=== PATIENT | female | born 1940 | race Caucasian/White ===

== ENCOUNTER → 2017-02-17 | Outpatient (CLI) | payer OTHER | END | disposition home or self-care (01) | LOC: CFH 09:51 | PROVIDERS: ATTEND Family Medicine | DX: Z12.31 Encounter for screening mammogram for malignant neoplasm of breast (principal); M85.80 Other specified disorders of bone density and structure, unspecified site; N95.9 Unspecified menopausal and perimenopausal disorder | CPT/HCPCS: G0202 ==

== ENCOUNTER → 2017-02-25 | Outpatient (CLI) | payer OTHER | END | disposition home or self-care (01) | LOC: CFH 11:16 | PROVIDERS: ATTEND Family Medicine | DX: Z13.820 Encounter for screening for osteoporosis (principal); M85.88 Other specified disorders of bone density and structure, other site | CPT/HCPCS: 77080 ==

== ENCOUNTER → 2017-04-14 | Outpatient (CLI) | payer OTHER | END | disposition home or self-care (01) | LOC: CFH 11:14 | PROVIDERS: ATTEND Family Medicine | DX: M48.56XA Collapsed vertebra, not elsewhere classified, lumbar region, initial encounter for fracture (principal) | CPT/HCPCS: 72100 ==

== ENCOUNTER 2017-07-12 10:07 | Inpatient (IN) | payer OTHER ==
[~2017-07-12] VITALS: Ht 152.4 cm; Wt 82.2 kg
[2017-07-12] MEDS ORDERED: TIZA4CAP PO (10:47)
[2017-07-12] MEDS ORDERED: ASPI-496 PO (10:47)
[2017-07-12] MEDS ORDERED: METF500T4 PO (10:47)
[2017-07-12] MEDS ORDERED: LISI5TAB7 PO (10:47)
[2017-07-12] MEDS ORDERED: PIOG45TA20 PO (10:47)
[2017-07-12] MEDS ORDERED: OMEP20TA62 PO (10:47)
[2017-07-12] MEDS ORDERED: SIMV20TA3 PO (10:47)
[2017-07-12] MEDS ORDERED: SODIUM CHLORIDE FLUSH 10ML SYR IVF ONE (11:00)
[2017-07-12 11:17] LABS: MEAN CORPUSCULAR HEMOGLOBIN 29.2 pg (27.0-34.8); MEAN CORPUSCULAR HGB CONC 34.2 g/dL (32.4-35.8); MEAN CORPUSCULAR VOLUME 85.3 fL (80-100); MEAN PLATELET VOLUME 8.8 fL (7.4-10.4); PLATELET COUNT 318 x10^3/uL (130-400); RED BLOOD COUNT 4.36 x10^6/uL (3.82-5.3)
[2017-07-12 11:26] LABS: INTERNATIONAL NORMALIZED RATIO 1.13 (0.93-1.1); PROTHROMBIN TIME 11.6 Seconds (9.6-11.5)
[2017-07-12 11:30] LABS: ACETONE, SERUM Negative (Negative)
[2017-07-12 11:47] LABS: ALANINE AMINOTRANSFERASE 210 U/L (12-78); ALBUMIN 3.1 g/dL (3.4-5.0); ANION GAP 9 mmol/L (5-15); CALCIUM 8.2 mg/dL (8.5-10.1); CHLORIDE 103 mmol/L (98-107); CREATININE 0.73 mg/dL (0.55-1.02)
[2017-07-12 11:52] LABS: ALKALINE PHOSPHATASE 473 U/L (45-117); BILIRUBIN,TOTAL 13.6 mg/dL (0.2-1.0); TOTAL PROTEIN 7.1 g/dL (6.4-8.2)
[2017-07-12 12:03] LABS: MD YES
[2017-07-12 12:05] LABS: EOS#(MANUAL) 0.15 x10^3/uL (0.0-0.4); EOS% (MANUAL) 2 % (1-7); LYMPH#(MANUAL) 1.68 x10^3/uL (1-3.4); LYMPHS% (MANUAL) 23 % (22-44); MONOS#(MANUAL) 0.51 x10^3/uL (0.3-2.7); MONOS% (MANUAL) 7 % (2-9); SEG#(MANUAL) 4.96 x10^3/uL (1.8-6.8); SEGS% (MANUAL) 68 % (42-75)
[2017-07-12 12:06] LABS: <PLATELET ESTIMATE> ADEQUATE; <PLT MORPHOLOGY> NORMAL PLT MORPH; ANISOCYTOSIS 1+; MICROCYTOSIS 1+; STOMATOCYTES 1+; TARGET CELLS 1+
[2017-07-12] MEDS ORDERED: NS + 40MEQ KCL 1,000 ML IV SCH (14:30)
[2017-07-12 14:48] LABS: CULTURE INDICATED? YES; MICROSCOPIC INDICATED
[2017-07-12] MEDS ORDERED: POTASSIUM CHLORIDE 20 MEQ in SODIUM CHLORIDE 0.9% 1,000 ML IV ONE (14:50)
[2017-07-12] MEDS ORDERED: SODIUM CHLORIDE FLUSH 10ML SYR IVF PRN (15:00)
[2017-07-12] MEDS ORDERED: CEFOTETAN PMX 1GM/50ML 50 ML IV ONE (15:00)
[2017-07-12] MEDS ORDERED: CEFOTETAN PMX 1GM/50ML 50 ML ONE (15:27)
[2017-07-12] MEDS ORDERED: LABETALOL 5MG/ML, 20ML IVPush PRN (15:30)
[2017-07-12] MEDS ORDERED: LORazepam 2 MG/ML, 1ML IVPush PRN (15:30)
[2017-07-12] MEDS ORDERED: ONDANSETRON 2MG/ML, 2ML IVPush PRN (15:30)
[2017-07-12] MEDS ORDERED: HYDROmorphone 2 MG/ML, 1ML IVPush PRN (15:30)
[2017-07-12] MEDS: D5%-0.45NACL+KCL 20MEQ 1,000 ML IV SCH (16:43)
[2017-07-12 17:46] VITALS: BP 152/89
[2017-07-12 20:09] VITALS: BP 151/91
[2017-07-12] MEDS: INSULIN ASPART 100 UNITS/ML, PEN SQ-INSULIN SCH ×2 (21:30→21:40)
[2017-07-12] MEDS: FAMOTIDINE 20 MG/2 ML IVPush SCH (21:36)
[2017-07-12] MEDS ORDERED: OMNIPAQUE 350 MG/ML, 100ML BOTTLE ONE (23:51)
[2017-07-13 02:51] VITALS: BP 153/87
[2017-07-13] MEDS: INSULIN ASPART 100 UNITS/ML, PEN SQ-INSULIN SCH ×4 (03:30→21:30)
[2017-07-13] MEDS: D5%-0.45NACL+KCL 20MEQ 1,000 ML IV SCH ×2 (04:32→23:55)
[2017-07-13 05:51] LABS: MEAN CORPUSCULAR HEMOGLOBIN 29.3 pg (27.0-34.8); MEAN CORPUSCULAR HGB CONC 34.8 g/dL (32.4-35.8); MEAN CORPUSCULAR VOLUME 84.3 fL (80-100); MEAN PLATELET VOLUME 9.5 fL (7.4-10.4); PLATELET COUNT 272 x10^3/uL (130-400); RED BLOOD COUNT 4.02 x10^6/uL (3.82-5.3); RED CELL DISTRIBUTION WIDTH 18.6 % (9.6-15.2)
[2017-07-13 05:53] VITALS: BP 145/84
[2017-07-13 06:02] LABS: CHLORIDE 102 mmol/L (98-107)
[2017-07-13 06:10] LABS: MD YES
[2017-07-13 06:13] LABS: ALANINE AMINOTRANSFERASE 181 U/L (12-78); ALBUMIN 2.8 g/dL (3.4-5.0); ALKALINE PHOSPHATASE 448 U/L (45-117); ANION GAP 8 mmol/L (5-15); BASOS#(MANUAL) 0.07 x10^3/uL (0-0.1); BASOS% (MANUAL) 1 % (0-1); BILIRUBIN,TOTAL 13.2 mg/dL (0.2-1.0); CALCIUM 7.8 mg/dL (8.5-10.1); CREATININE 0.54 mg/dL (0.55-1.02); EOS#(MANUAL) 0.14 x10^3/uL (0.0-0.4); EOS% (MANUAL) 2 % (1-7); LYMPH#(MANUAL) 2.38 x10^3/uL (1-3.4); LYMPHS% (MANUAL) 35 % (22-44); MONOS#(MANUAL) 0.27 x10^3/uL (0.3-2.7); MONOS% (MANUAL) 4 % (2-9); SEG#(MANUAL) 3.94 x10^3/uL (1.8-6.8); SEGS% (MANUAL) 58 % (42-75); TOTAL PROTEIN 6.4 g/dL (6.4-8.2)
[2017-07-13 06:15] LABS: <PLATELET ESTIMATE> ADEQUATE; <PLT MORPHOLOGY> NORMAL PLT MORPH; ANISOCYTOSIS 1+; MICROCYTOSIS 1+; STOMATOCYTES 1+
[2017-07-13 06:16] LABS: TARGET CELLS 1+
[2017-07-13 07:34] VITALS: BP 149/87
[2017-07-13] MEDS ORDERED: POTASSIUM CHLORIDE 20 MEQ TAB.ER.PRT PO ONE (08:30)
[2017-07-13] MEDS: FAMOTIDINE 20 MG/2 ML IVPush SCH ×2 (09:17→21:41)
[2017-07-13] MEDS ORDERED: POTASSIUM CHLORIDE 30 MEQ in SODIUM CHLORIDE 0.9% 500 ML IV ONE (09:30)
[2017-07-13 13:33] VITALS: BP 140/82
[2017-07-13] MEDS: POTASSIUM CHLORIDE 20 MEQ TAB.ER.PRT PO SCH (17:25)
[2017-07-13 18:23] LABS: ANION GAP 6 mmol/L (5-15); CHLORIDE 103 mmol/L (98-107); CREATININE 0.66 mg/dL (0.55-1.02)
[2017-07-13 21:43] VITALS: BP 135/84
[2017-07-14] MEDS: INSULIN ASPART 100 UNITS/ML, PEN SQ-INSULIN SCH ×3 (03:30→20:42)
[2017-07-14 03:31] VITALS: BP 159/91
[2017-07-14 04:14] LABS: MEAN CORPUSCULAR HEMOGLOBIN 29.1 pg (27.0-34.8); MEAN CORPUSCULAR HGB CONC 34.3 g/dL (32.4-35.8); MEAN CORPUSCULAR VOLUME 84.7 fL (80-100); MEAN PLATELET VOLUME 9.6 fL (7.4-10.4); PLATELET COUNT 249 x10^3/uL (130-400); RED BLOOD COUNT 3.99 x10^6/uL (3.82-5.3)
[2017-07-14 04:24] LABS: ALANINE AMINOTRANSFERASE 167 U/L (12-78); ALBUMIN 2.5 g/dL (3.4-5.0); ANION GAP 7 mmol/L (5-15); CALCIUM 7.6 mg/dL (8.5-10.1); CHLORIDE 104 mmol/L (98-107); CREATININE 0.58 mg/dL (0.55-1.02)
[2017-07-14 04:27] LABS: ALKALINE PHOSPHATASE 445 U/L (45-117); BILIRUBIN,TOTAL 13.3 mg/dL (0.2-1.0); TOTAL PROTEIN 6.1 g/dL (6.4-8.2)
[2017-07-14 04:45] LABS: MD YES
[2017-07-14 04:47] LABS: ANISOCYTOSIS 1+; BASOS#(MANUAL) 0.06 x10^3/uL (0-0.1); BASOS% (MANUAL) 1 % (0-1); EOS#(MANUAL) 0.13 x10^3/uL (0.0-0.4); EOS% (MANUAL) 2 % (1-7); LYMPH#(MANUAL) 1.51 x10^3/uL (1-3.4); LYMPHS% (MANUAL) 24 % (22-44); MONOS% (MANUAL) 8 % (2-9); SEGS% (MANUAL) 65 % (42-75); TARGET CELLS 1+
[2017-07-14 04:48] LABS: <PLATELET ESTIMATE> ADEQUATE; <PLT MORPHOLOGY> NORMAL PLT MORPH; STOMATOCYTES 1+
[2017-07-14] MEDS ORDERED: MIDAZOLAM 1 MG/ML, 2ML ONE (07:06)
[2017-07-14] MEDS ORDERED: FENTANYL PF 100 MCG/2ML ONE (07:06)
[2017-07-14] MEDS: D5%-0.45NACL+KCL 20MEQ 1,000 ML IV SCH (07:12)
[2017-07-14] MEDS ORDERED: PIPERACILLIN/TAZO/PMX 3.375GM 50 ML ONE (07:18)
[2017-07-14] MEDS ORDERED: SUCCINYLCHOLINE 20 MG/ML, 10ML ONE (07:29)
[2017-07-14] MEDS ORDERED: ONDANSETRON 2MG/ML, 2ML ONE (07:29)
[2017-07-14] MEDS ORDERED: PROPOFOL 10 MG/ML, 20ML ONE (07:29)
[2017-07-14] MEDS ORDERED: ROCURONIUM 10 MG/ML,10ML ONE (07:29)
[2017-07-14] MEDS ORDERED: DEXAMETHASONE 4 MG/ML, 1ML ONE (07:29)
[2017-07-14] MEDS: POTASSIUM CHLORIDE 20 MEQ TAB.ER.PRT PO SCH ×2 (08:00→18:04)
[2017-07-14] MEDS ORDERED: ALBUTEROL SULFATE 2.5 MG/3 ML NPPB PRN (08:30)
[2017-07-14] MEDS ORDERED: HYDROcodone/APAP 7.5-325MG/15ML UDC PO PRN (08:30)
[2017-07-14] MEDS ORDERED: FENTANYL PF 100 MCG/2ML IV PRN (08:30)
[2017-07-14] MEDS ORDERED: DIAZEPAM 5 MG/ML, 2ML IVPush PRN (08:30)
[2017-07-14] MEDS ORDERED: MEPERIDINE/PF 25MG/0.5ML IVPush PRN (08:30)
[2017-07-14] MEDS ORDERED: ACETAMINOPHEN 325 MG TABLET PO PRN (08:30)
[2017-07-14] MEDS ORDERED: EPHEDRINE 50 MG/ML, 1ML IVPush PRN (08:30)
[2017-07-14] MEDS ORDERED: METOPROLOL 1 MG/ML, 5ML IV PRN (08:30)
[2017-07-14] MEDS ORDERED: OXYcodone 5 MG/5 ML ORAL.SOL UDC PO PRN (08:30)
[2017-07-14] MEDS ORDERED: MIDAZOLAM 1 MG/ML, 2ML IV PRN (08:30)
[2017-07-14] MEDS ORDERED: ONDANSETRON 2MG/ML, 2ML IVPush PRN (08:30)
[2017-07-14] MEDS ORDERED: PROMETHAZINE 25 MG/ML, 1ML IV PRN (08:30)
[2017-07-14] MEDS ORDERED: LABETALOL 5MG/ML, 20ML IV PRN (08:30)
[2017-07-14] MEDS ORDERED: HYDROmorphone 1 MG/ML, 1ML IV PRN (08:30)
[2017-07-14] MEDS ORDERED: hydrALAzine 20 MG/ML, 1ML IV PRN (08:30)
[2017-07-14] MEDS ORDERED: OMNIPAQUE 350 MG/ML, 50 ML BOTTLE ONE (08:40)
[2017-07-14] MEDS: FAMOTIDINE 20 MG/2 ML IVPush SCH ×2 (09:00→22:37)
[2017-07-14 09:27] VITALS: BP 153/88
[2017-07-14] MEDS ORDERED: OXYcodone IR 5MG TABLET PO PRN (10:00)
[2017-07-14] MEDS: ENOXAPARIN 40 MG/0.4 ML SQ SCH (10:00)
[2017-07-14] MEDS: LISINOPRIL 5 MG TABLET PO SCH (10:30)
[2017-07-14] MEDS ORDERED: INSULIN ASPART 100 UNITS/ML, PEN SQ-INSULIN SCH (11:00)
[2017-07-14 14:00] VITALS: BP 153/90
[2017-07-14 18:53] VITALS: BP 154/85
[2017-07-15 01:36] VITALS: BP 133/72
[2017-07-15 05:18] LABS: CHLORIDE 104 mmol/L (98-107)
[2017-07-15 05:25] LABS: ALANINE AMINOTRANSFERASE 152 U/L (12-78); ALBUMIN 2.5 g/dL (3.4-5.0); ALKALINE PHOSPHATASE 411 U/L (45-117); ANION GAP 9 mmol/L (5-15); CALCIUM 7.4 mg/dL (8.5-10.1); CREATININE 0.51 mg/dL (0.55-1.02); TOTAL PROTEIN 6.2 g/dL (6.4-8.2)
[2017-07-15] MEDS: INSULIN ASPART 100 UNITS/ML, PEN SQ-INSULIN SCH ×4 (07:00→21:00)
[2017-07-15] MEDS ORDERED: OXYC5TAB3 PO (07:15)
[2017-07-15 07:42] VITALS: BP 146/81
[2017-07-15] MEDS: ENOXAPARIN 40 MG/0.4 ML SQ SCH (10:06)
[2017-07-15] MEDS: LISINOPRIL 5 MG TABLET PO SCH (10:06)
[2017-07-15] MEDS: FAMOTIDINE 20 MG/2 ML IVPush SCH (10:06)
[2017-07-15] MEDS: POTASSIUM CHLORIDE 20 MEQ TAB.ER.PRT PO SCH ×2 (10:06→17:29)
[2017-07-15 12:33] VITALS: BP 132/75
[2017-07-15] MEDS ORDERED: NALOXONE 1 MG/ML, 2ML ONE (13:31)
[2017-07-15] MEDS ORDERED: MIDAZOLAM 1 MG/ML, 5ML ONE (13:31)
[2017-07-15] MEDS ORDERED: FLUMAZENIL 0.1 MG/1 ML, 5ML ONE (13:31)
[2017-07-15] MEDS ORDERED: FENTANYL PF 100 MCG/2ML ONE (13:31)
[2017-07-15] MEDS: metFORMIN 500 MG TABLET PO SCH (17:29)
[2017-07-15 18:12] VITALS: BP 125/77
[2017-07-16 02:16] VITALS: BP 125/79
[2017-07-16 05:26] LABS: ALBUMIN 2.5 g/dL (3.4-5.0); ANION GAP 5 mmol/L (5-15); CALCIUM 7.6 mg/dL (8.5-10.1); CHLORIDE 105 mmol/L (98-107)
[2017-07-16 05:27] LABS: MEAN CORPUSCULAR HGB CONC 33.7 g/dL (32.4-35.8); MEAN CORPUSCULAR VOLUME 86.1 fL (80-100); MEAN PLATELET VOLUME 9.1 fL (7.4-10.4); PLATELET COUNT 339 x10^3/uL (130-400); RED BLOOD COUNT 4.02 x10^6/uL (3.82-5.3); RED CELL DISTRIBUTION WIDTH 19.8 % (9.6-15.2)
[2017-07-16 05:29] LABS: ALANINE AMINOTRANSFERASE 121 U/L (12-78); ALKALINE PHOSPHATASE 384 U/L (45-117); BILIRUBIN,TOTAL 7.5 mg/dL (0.2-1.0); CREATININE 0.51 mg/dL (0.55-1.02); TOTAL PROTEIN 6.4 g/dL (6.4-8.2)
[2017-07-16 06:24] LABS: MD YES
[2017-07-16 06:26] LABS: ANISOCYTOSIS 1+; BASOS#(MANUAL) 0.08 x10^3/uL (0-0.1); BASOS% (MANUAL) 1 % (0-1); EOS#(MANUAL) 0.08 x10^3/uL (0.0-0.4); EOS% (MANUAL) 1 % (1-7); LYMPHS% (MANUAL) 25 % (22-44); MONOS#(MANUAL) 0.08 x10^3/uL (0.3-2.7); MONOS% (MANUAL) 1 % (2-9); SEG#(MANUAL) 6.05 x10^3/uL (1.8-6.8); SEGS% (MANUAL) 72 % (42-75)
[2017-07-16 06:28] LABS: <PLATELET ESTIMATE> ADEQUATE; <PLT MORPHOLOGY> NORMAL PLT MORPH; TARGET CELLS 1+
[2017-07-16] MEDS: INSULIN ASPART 100 UNITS/ML, PEN SQ-INSULIN SCH (07:00)
[2017-07-16] MEDS ORDERED: OMEPRAZOLE 20 MG CAPSULE.DR PO SCH (07:30)
[2017-07-16 08:00] VITALS: BP 124/74
[2017-07-16] MEDS: POTASSIUM CHLORIDE 20 MEQ TAB.ER.PRT PO SCH (08:15)
[2017-07-16] MEDS: LISINOPRIL 5 MG TABLET PO SCH (08:15)
[2017-07-16] MEDS ORDERED: LISI5TAB7 PO (08:50)
[2017-07-16] MEDS: metFORMIN 500 MG TABLET PO SCH (09:15)
== END 2017-07-16 11:33 | disposition home or self-care (01) | DRG 435 ==
LOC: ED 14:29 → EDIP 14:50 → SUATTDRO 14:51 → 5SO 16:55 → 4EST 07-13 05:11
PROVIDERS: ADMIT Internal Medicine; ATTEND Internal Medicine
PROC: BF101ZZ Fluoroscopy of Bile Ducts using Low Osmolar Contrast (ICD-10-PCS; 2017-07-14)
PROC: 0FB98ZX Excision of Common Bile Duct, Via Natural or Artificial Opening Endoscopic, Diagnostic (ICD-10-PCS; 2017-07-14)
PROC: BF40ZZZ Ultrasonography of Bile Ducts (ICD-10-PCS; 2017-07-14)
PROC: 0F798ZZ Dilation of Common Bile Duct, Via Natural or Artificial Opening Endoscopic (ICD-10-PCS; 2017-07-14)
PROC: 02HV33Z Insertion of Infusion Device into Superior Vena Cava, Percutaneous Approach (ICD-10-PCS; principal; 2017-07-15)
PROC: B5181ZA Fluoroscopy of Superior Vena Cava using Low Osmolar Contrast, Guidance (ICD-10-PCS; 2017-07-15)
PROC: B548ZZA Ultrasonography of Superior Vena Cava, Guidance (ICD-10-PCS; 2017-07-15)
PROC: 0FB03ZX Excision of Liver, Percutaneous Approach, Diagnostic (ICD-10-PCS; 2017-07-15)
DX: C22.1 Intrahepatic bile duct carcinoma (principal); E43 Unspecified severe protein-calorie malnutrition; K83.1 Obstruction of bile duct; E11.9 Type 2 diabetes mellitus without complications; K75.9 Inflammatory liver disease, unspecified; K80.21 Calculus of gallbladder without cholecystitis with obstruction; K21.9 Gastro-esophageal reflux disease without esophagitis; E66.9 Obesity, unspecified; E87.6 Hypokalemia; I10 Essential (primary) hypertension; E78.5 Hyperlipidemia, unspecified; K44.9 Diaphragmatic hernia without obstruction or gangrene; M85.80 Other specified disorders of bone density and structure, unspecified site; Z66 Do not resuscitate; Z79.82 Long term (current) use of aspirin; Z79.84 Long term (current) use of oral hypoglycemic drugs; Z79.899 Other long term (current) drug therapy; Z80.41 Family history of malignant neoplasm of ovary; Z87.442 Personal history of urinary calculi; Z87.891 Personal history of nicotine dependence; Z68.35 Body mass index [BMI] 35.0-35.9, adult
CPT/HCPCS: 36415; 36569; 47000; 71010; 74177; 74181; 74328; 76700; 76937; 77001; 77012; 80048; 80053; 81001; 82010; 82140; 82962; 83605; 83690; 83880; 85025; 85610; 85730; 86301; 87077; 87086; 87186; 88104; 88112; 88172; 88173; 93005; 96374; 96375; 99156; 99157; J1100; J1650; J1815; J2250; J2405; J2543; J2704; J3010; J3480; Q9967; C1751; C1769; C1894; C2625; J0330; J2310; S0028; S0074

== ENCOUNTER 2017-09-09 17:13 | Inpatient (IN) | payer OTHER ==
[~2017-09-09] VITALS: Ht 152.4 cm; Wt 84.6 kg
[~2017-09-09 17:13] MED LIST: ASPI-496 PO; LISI5TAB7 PO; METF500T4 PO; OMEP20TA62 PO; OMNIPAQUE 350 MG/ML, 100ML BOTTLE ONE; OXYC5TAB3 PO; PIOG45TA20 PO; SIMV20TA3 PO; TIZA4CAP PO
[2017-09-09 18:00] LABS: INTERNATIONAL NORMALIZED RATIO 1.15 (0.93-1.1); PROTHROMBIN TIME 11.8 Seconds (9.6-11.5)
[2017-09-09 18:01] LABS: MEAN CORPUSCULAR HEMOGLOBIN 29.8 pg (27.0-34.8); MEAN CORPUSCULAR HGB CONC 34.1 g/dL (32.4-35.8); MEAN CORPUSCULAR VOLUME 87.2 fL (80-100); MEAN PLATELET VOLUME 7.9 fL (7.4-10.4); PLATELET COUNT 439 x10^3/uL (130-400); RED BLOOD COUNT 4.49 x10^6/uL (3.82-5.3); RED CELL DISTRIBUTION WIDTH 15.7 % (9.6-15.2)
[2017-09-09 18:03] LABS: ALBUMIN 2.5 g/dL (3.4-5.0); ANION GAP 11 mmol/L (5-15); CALCIUM 9.1 mg/dL (8.5-10.1); CHLORIDE 92 mmol/L (98-107)
[2017-09-09 18:07] LABS: ALANINE AMINOTRANSFERASE 110 U/L (12-78); ALKALINE PHOSPHATASE 768 U/L (45-117); BILIRUBIN,TOTAL 11.4 mg/dL (0.2-1.0); TOTAL PROTEIN 7.1 g/dL (6.4-8.2)
[2017-09-09 18:59] LABS: MD YES
[2017-09-09 19:02] LABS: EOS#(MANUAL) 0.09 x10^3/uL (0.0-0.4); EOS% (MANUAL) 1 % (1-7); LYMPH#(MANUAL) 1.96 x10^3/uL (1-3.4); LYMPHS% (MANUAL) 23 % (22-44); METAMYELOCYTES# (MANUAL) 0.09 x10^3/uL (0-0); METAMYELOCYTES% (MANUAL) 1 % (0-1); MONOS#(MANUAL) 0.43 x10^3/uL (0.3-2.7); MONOS% (MANUAL) 5 % (2-9); SEG#(MANUAL) 5.95 x10^3/uL (1.8-6.8); SEGS% (MANUAL) 70 % (42-75)
[2017-09-09 19:03] LABS: ANISOCYTOSIS 1+
[2017-09-09 19:04] LABS: <PLATELET ESTIMATE> INCREASED; <PLT MORPHOLOGY> NORMAL PLT MORPH
[2017-09-09] MEDS ORDERED: SODIUM CHLORIDE FLUSH 10ML SYR IVF PRN (21:30)
[2017-09-09] MEDS ORDERED: CELE200C PO (21:41)
[2017-09-09] MEDS ORDERED: LISI-420 PO (21:41)
[2017-09-09] MEDS ORDERED: NS + 20MEQ KCL 1,000 ML IV SCH (21:42)
[2017-09-09] MEDS ORDERED: DOCUSATE 100 MG CAPSULE PO PRN (22:00)
[2017-09-09] MEDS ORDERED: POLYETHYLENE GLYCOL 17 GM PACKET PO PRN (22:00)
[2017-09-09] MEDS ORDERED: ACETAMINOPHEN 325 MG TABLET PO PRN (22:00)
[2017-09-09] MEDS ORDERED: OXYcodone IR 5MG TABLET PO PRN (22:00)
[2017-09-09 22:48] VITALS: BP 158/95
[2017-09-10] MEDS: morphine SULFATE 10 MG/ML, 1ML IVPush PRN ×2 (00:23→08:40)
[2017-09-10 01:53] VITALS: BP 129/82
[2017-09-10 05:29] LABS: CHLORIDE 96 mmol/L (98-107)
[2017-09-10 05:35] LABS: ALANINE AMINOTRANSFERASE 94 U/L (12-78); ALBUMIN 2.1 g/dL (3.4-5.0); ALKALINE PHOSPHATASE 641 U/L (45-117); ANION GAP 11 mmol/L (5-15); BILIRUBIN,TOTAL 9.4 mg/dL (0.2-1.0); CALCIUM 8.5 mg/dL (8.5-10.1); CREATININE 0.48 mg/dL (0.55-1.02)
[2017-09-10 06:30] VITALS: BP 142/76
[2017-09-10] MEDS: LISINOPRIL 20 MG TABLET PO SCH (09:00)
[2017-09-10] MEDS: SENNA/DOCUSATE TABLET PO SCH (09:00)
[2017-09-10] MEDS: PIPERACILLIN/TAZO/PMX 3.375GM 50 ML IV SCH ×3 (11:50→23:39)
[2017-09-10 13:20] VITALS: BP 130/74
[2017-09-10] MEDS ORDERED: GADOBUTROL 10 MMOL/10 ML VIAL ONE (13:49)
[2017-09-10 14:16] VITALS: BP 128/78
[2017-09-10] MEDS: ONDANSETRON 2MG/ML, 2ML IVPush PRN ×2 (16:33→22:00)
[2017-09-10] MEDS ORDERED: MAGNESIUM SULFATE PMX 2GM/50ML 50 ML IV ONE (17:00)
[2017-09-10] MEDS: POTASSIUM CHLORIDE 20 MEQ TAB.ER.PRT PO SCH (17:49)
[2017-09-10] MEDS: NS + 20MEQ KCL 1,000 ML IV SCH (17:49)
[2017-09-10 18:43] VITALS: BP 142/85
[2017-09-10] MEDS: OXYcodone IR 5MG TABLET PO PRN (21:50)
[2017-09-11 02:09] VITALS: BP 126/84
[2017-09-11 05:07] LABS: ALANINE AMINOTRANSFERASE 113 U/L (12-78); ALBUMIN 2.1 g/dL (3.4-5.0); ANION GAP 12 mmol/L (5-15); CALCIUM 7.8 mg/dL (8.5-10.1); CHLORIDE 100 mmol/L (98-107); CREATININE 0.48 mg/dL (0.55-1.02)
[2017-09-11 05:10] LABS: ALKALINE PHOSPHATASE 735 U/L (45-117); BILIRUBIN,TOTAL 11.2 mg/dL (0.2-1.0); TOTAL PROTEIN 6.2 g/dL (6.4-8.2)
[2017-09-11 05:41] LABS: MEAN CORPUSCULAR HEMOGLOBIN 29.8 pg (27.0-34.8); MEAN CORPUSCULAR HGB CONC 34.2 g/dL (32.4-35.8); MEAN PLATELET VOLUME 7.2 fL (7.4-10.4); PLATELET COUNT 470 x10^3/uL (130-400); RED BLOOD COUNT 3.91 x10^6/uL (3.82-5.3); RED CELL DISTRIBUTION WIDTH 15.6 % (9.6-15.2)
[2017-09-11 05:55] LABS: MD YES
[2017-09-11 05:57] LABS: <PLATELET ESTIMATE> INCREASED; <PLT MORPHOLOGY> NORMAL PLT MORPH; ANISOCYTOSIS 1+; LYMPH#(MANUAL) 1.22 x10^3/uL (1-3.4); LYMPHS% (MANUAL) 15 % (22-44); MONOS#(MANUAL) 0.24 x10^3/uL (0.3-2.7); MONOS% (MANUAL) 3 % (2-9); MYELOCYTES# (MANUAL) 0.08 x10^3/uL (0-0); MYELOCYTES% (MANUAL) 1 % (0-0); SEG#(MANUAL) 6.56 x10^3/uL (1.8-6.8); SEGS% (MANUAL) 81 % (42-75)
[2017-09-11] MEDS: PIPERACILLIN/TAZO/PMX 3.375GM 50 ML IV SCH ×4 (06:05→23:44)
[2017-09-11 07:20] VITALS: BP 131/76
[2017-09-11] MEDS: NS + 20MEQ KCL 1,000 ML IV SCH (08:27)
[2017-09-11] MEDS: ONDANSETRON 2MG/ML, 2ML IVPush PRN ×3 (09:51→23:44)
[2017-09-11] MEDS: morphine SULFATE 10 MG/ML, 1ML IVPush PRN (12:37)
[2017-09-11 12:55] VITALS: BP 138/76
[2017-09-11] MEDS: LISINOPRIL 20 MG TABLET PO SCH (14:11)
[2017-09-11] MEDS: POTASSIUM CHLORIDE 20 MEQ TAB.ER.PRT PO SCH ×2 (14:11→17:19)
[2017-09-11] MEDS: SENNA/DOCUSATE TABLET PO SCH (14:12)
[2017-09-11 14:14] VITALS: BP 114/66
[2017-09-11] MEDS: OXYcodone IR 5MG TABLET PO PRN ×2 (17:39→21:41)
[2017-09-11 19:11] VITALS: BP 130/70
[2017-09-12 00:58] VITALS: BP 161/98
[2017-09-12] MEDS: OXYcodone IR 5MG TABLET PO PRN ×5 (01:19→23:03)
[2017-09-12 05:01] LABS: ALANINE AMINOTRANSFERASE 131 U/L (12-78); ALBUMIN 2.2 g/dL (3.4-5.0); ANION GAP 12 mmol/L (5-15); CALCIUM 7.6 mg/dL (8.5-10.1); CHLORIDE 99 mmol/L (98-107); CREATININE 0.42 mg/dL (0.55-1.02)
[2017-09-12 05:03] LABS: ALKALINE PHOSPHATASE 818 U/L (45-117); BILIRUBIN,TOTAL 11.9 mg/dL (0.2-1.0); TOTAL PROTEIN 6.2 g/dL (6.4-8.2)
[2017-09-12] MEDS: ONDANSETRON 2MG/ML, 2ML IVPush PRN ×4 (05:36→22:56)
[2017-09-12] MEDS: PIPERACILLIN/TAZO/PMX 3.375GM 50 ML IV SCH ×3 (05:36→18:28)
[2017-09-12 05:59] VITALS: BP 147/81
[2017-09-12 06:00] LABS: MEAN CORPUSCULAR HEMOGLOBIN 29.9 pg (27.0-34.8); MEAN CORPUSCULAR HGB CONC 34.5 g/dL (32.4-35.8); MEAN CORPUSCULAR VOLUME 86.6 fL (80-100); MEAN PLATELET VOLUME 7.6 fL (7.4-10.4); PLATELET COUNT 471 x10^3/uL (130-400); RED BLOOD COUNT 3.96 x10^6/uL (3.82-5.3)
[2017-09-12 06:01] LABS: MD YES
[2017-09-12 06:03] LABS: LYMPH#(MANUAL) 1.69 x10^3/uL (1-3.4); LYMPHS% (MANUAL) 19 % (22-44); MONOS#(MANUAL) 0.45 x10^3/uL (0.3-2.7); MONOS% (MANUAL) 5 % (2-9); SEG#(MANUAL) 6.76 x10^3/uL (1.8-6.8); SEGS% (MANUAL) 76 % (42-75)
[2017-09-12 06:04] LABS: <PLATELET ESTIMATE> INCREASED; <PLT MORPHOLOGY> NORMAL PLT MORPH; ANISOCYTOSIS 1+
[2017-09-12 07:39] VITALS: BP 131/82
[2017-09-12] MEDS ORDERED: POTASSIUM CHLORIDE 20 MEQ TAB.ER.PRT PO ONE (08:30)
[2017-09-12] MEDS: LISINOPRIL 20 MG TABLET PO SCH (09:27)
[2017-09-12] MEDS: SENNA/DOCUSATE TABLET PO SCH (09:28)
[2017-09-12] MEDS ORDERED: POTASSIUM CHLORIDE 20 MEQ PACKET PO ONE (09:30)
[2017-09-12 13:35] VITALS: BP 156/87
[2017-09-12 19:48] VITALS: BP 134/88
[2017-09-13] MEDS: PIPERACILLIN/TAZO/PMX 3.375GM 50 ML IV SCH ×4 (00:36→18:56)
[2017-09-13 01:58] VITALS: BP 146/91
[2017-09-13] MEDS: ONDANSETRON 2MG/ML, 2ML IVPush PRN ×2 (03:40→17:58)
[2017-09-13] MEDS: OXYcodone IR 5MG TABLET PO PRN ×3 (03:40→17:58)
[2017-09-13 07:14] VITALS: BP 116/75
[2017-09-13] MEDS: LISINOPRIL 20 MG TABLET PO SCH (08:38)
[2017-09-13] MEDS: SENNA/DOCUSATE TABLET PO SCH (08:38)
[2017-09-13 14:06] VITALS: BP 137/83
[2017-09-13 19:35] VITALS: BP 123/76
[2017-09-14] MEDS: PIPERACILLIN/TAZO/PMX 3.375GM 50 ML IV SCH ×4 (00:36→18:29)
[2017-09-14] MEDS: OXYcodone IR 5MG TABLET PO PRN ×3 (00:36→17:28)
[2017-09-14 01:22] VITALS: BP 163/95
[2017-09-14 07:24] VITALS: BP 134/80
[2017-09-14] MEDS ORDERED: OXYcodone 5 MG/5 ML ORAL.SOL UDC PO PRN (11:30)
[2017-09-14] MEDS ORDERED: FENTANYL PF 100 MCG/2ML IV PRN (11:30)
[2017-09-14] MEDS ORDERED: ONDANSETRON 2MG/ML, 2ML IVPush PRN (11:30)
[2017-09-14] MEDS ORDERED: HYDROcodone/APAP 7.5-325MG/15ML UDC PO PRN (11:30)
[2017-09-14] MEDS ORDERED: HYDROmorphone 2 MG/ML, 1ML IV PRN (11:30)
[2017-09-14 12:28] VITALS: BP 141/86
[2017-09-14] MEDS: SENNA/DOCUSATE TABLET PO SCH (12:28)
[2017-09-14] MEDS: LISINOPRIL 20 MG TABLET PO SCH (12:28)
[2017-09-14] MEDS ORDERED: ONDANSETRON 2MG/ML, 2ML ONE (15:36)
[2017-09-14] MEDS ORDERED: PROPOFOL 10 MG/ML, 20ML ONE (15:36)
[2017-09-14] MEDS: ONDANSETRON 2MG/ML, 2ML IVPush PRN (17:28)
[2017-09-14 19:02] VITALS: BP 142/79
[2017-09-15] MEDS: PIPERACILLIN/TAZO/PMX 3.375GM 50 ML IV SCH ×2 (00:25→05:23)
[2017-09-15] MEDS: OXYcodone IR 5MG TABLET PO PRN ×4 (00:25→22:30)
[2017-09-15 02:01] VITALS: BP 148/88
[2017-09-15 05:21] LABS: ALANINE AMINOTRANSFERASE 124 U/L (12-78); ALBUMIN 2.1 g/dL (3.4-5.0); ANION GAP 10 mmol/L (5-15); CHLORIDE 96 mmol/L (98-107); CREATININE 0.38 mg/dL (0.55-1.02)
[2017-09-15 05:23] LABS: ALKALINE PHOSPHATASE 866 U/L (45-117); BILIRUBIN,TOTAL 10.5 mg/dL (0.2-1.0); TOTAL PROTEIN 5.8 g/dL (6.4-8.2)
[2017-09-15] MEDS ORDERED: POTASSIUM CHLORIDE 20 MEQ TAB.ER.PRT PO ONE (07:30)
[2017-09-15] MEDS: SENNA/DOCUSATE TABLET PO SCH (07:53)
[2017-09-15] MEDS: ONDANSETRON 2MG/ML, 2ML IVPush PRN ×3 (07:53→22:31)
[2017-09-15] MEDS: LISINOPRIL 20 MG TABLET PO SCH (07:53)
[2017-09-15 08:30] VITALS: BP 130/85
[2017-09-15] MEDS ORDERED: LIDOCAINE 1%, 20ML ONE (11:55)
[2017-09-15 14:30] VITALS: BP_SYST 108; BP_SYST 137; BP_DIAS 60; BP_DIAS 92
[2017-09-15 20:14] VITALS: BP 122/81
[2017-09-16 01:50] VITALS: BP 145/82
[2017-09-16] MEDS ORDERED: FUROSEMIDE 40 MG/4 ML IV ONE (07:00)
[2017-09-16] MEDS ORDERED: POTASSIUM CHLORIDE 20 MEQ TAB.ER.PRT PO ONE (07:00)
[2017-09-16 07:15] VITALS: BP 140/89
[2017-09-16] MEDS ORDERED: OXYC5TAB3 PO (08:04)
[2017-09-16] MEDS: LISINOPRIL 20 MG TABLET PO SCH (08:41)
[2017-09-16] MEDS: SENNA/DOCUSATE TABLET PO SCH (08:41)
[2017-09-16] MEDS ORDERED: ONDA4TAB7 PO (09:48)
[2017-09-16 14:03] VITALS: BP 126/88
== END 2017-09-16 16:15 | disposition home or self-care (01) | DRG 919 ==
LOC: ED 20:45 → SUATTDRO 21:28 → EDIP 21:29 → 4NOR 22:15 → 3NW 09-10 14:05
PROVIDERS: ADMIT Family Medicine; ATTEND Family Medicine
PROC: 0FPB8DZ Removal of Intraluminal Device from Hepatobiliary Duct, Via Natural or Artificial Opening Endoscopic (ICD-10-PCS; principal; 2017-09-09)
PROC: 0F768DZ Dilation of Left Hepatic Duct with Intraluminal Device, Via Natural or Artificial Opening Endoscopic (ICD-10-PCS; 2017-09-09)
PROC: 0F758DZ Dilation of Right Hepatic Duct with Intraluminal Device, Via Natural or Artificial Opening Endoscopic (ICD-10-PCS; 2017-09-09)
PROC: BF111ZZ Fluoroscopy of Biliary and Pancreatic Ducts using Low Osmolar Contrast (ICD-10-PCS; 2017-09-09)
DX: T85.590A Other mechanical complication of bile duct prosthesis, initial encounter (principal); K83.1 Obstruction of bile duct; E43 Unspecified severe protein-calorie malnutrition; R18.8 Other ascites; C23 Malignant neoplasm of gallbladder; C22.1 Intrahepatic bile duct carcinoma; E11.9 Type 2 diabetes mellitus without complications; E66.01 Morbid (severe) obesity due to excess calories; E83.42 Hypomagnesemia; Y83.8 Other surgical procedures as the cause of abnormal reaction of the patient, or of later complication, without mention of misadventure at the time of the procedure; Y92.89 Other specified places as the place of occurrence of the external cause; E78.5 Hyperlipidemia, unspecified; E87.6 Hypokalemia; I10 Essential (primary) hypertension; M85.80 Other specified disorders of bone density and structure, unspecified site; Z68.36 Body mass index [BMI] 36.0-36.9, adult; Z83.3 Family history of diabetes mellitus; Z85.05 Personal history of malignant neoplasm of liver; Z85.09 Personal history of malignant neoplasm of other digestive organs; Z87.891 Personal history of nicotine dependence; Z87.442 Personal history of urinary calculi; Z88.2 Allergy status to sulfonamides; Z92.21 Personal history of antineoplastic chemotherapy
CPT/HCPCS: 36415; 74177; 74183; 74328; 76700; 80053; 83690; 83735; 85025; 85610; 85730; 99285; A9585; J1644; J1940; J2250; J2405; J2543; J2704; J3010; J3480; J3490; Q9967; C1769; C1894; C2625; J1642; J2270; J3475

== ENCOUNTER 2017-09-30 09:37 | Day surgery (SDC) | payer OTHER ==
[~2017-09-30] VITALS: Ht 152.4 cm; Wt 70.0 kg
[~2017-09-30 09:37] MED LIST changes: +BACITRACIN 50,000 UNIT ONE; +BUPIVACAINE/PF 0.5% ONE; +CELE200C PO; +HEPARIN 1,000 UNITS/ML, 10ML ONE; +LISI-420 PO; -OMNIPAQUE 350 MG/ML, 100ML BOTTLE ONE; +ONDA4TAB7 PO
[2017-09-30] MEDS ORDERED: LACTATED RINGERS 1,000 ML IV SCH ×2 (10:16→10:42)
[2017-09-30] MEDS ORDERED: PLEASE ENTER HEIGHT AND WEIGHT MC SCH (10:30)
[2017-09-30 10:31] VITALS: BP 109/67
[2017-09-30] MEDS ORDERED: MEGE625O PO (10:31)
[2017-09-30] MEDS ORDERED: ONDA4TAB7 PO (10:31)
[2017-09-30] MEDS ORDERED: OXYC5CAP2 PO (10:31)
[2017-09-30] MEDS ORDERED: CBD OIL TP (10:31)
[2017-09-30 10:47] LABS: BASOPHILS # (AUTO) 0.15 x10^3/uL (0-0.1); BASOPHILS % (AUTO) 1 % (0-1); EOSINOPHILS # (AUTO) 0.01 x10^3/uL (0-0.4); EOSINOPHILS % (AUTO) 0 % (1-7); LYMPHOCYTES # (AUTO) 1.21 x10^3/uL (1-3.4); LYMPHOCYTES % (AUTO) 9 % (22-44); MD NO; MEAN CORPUSCULAR HEMOGLOBIN 29.5 pg (27.0-34.8); MEAN CORPUSCULAR HGB CONC 33.9 g/dL (32.4-35.8); MEAN CORPUSCULAR VOLUME 87.1 fL (80-100); MEAN PLATELET VOLUME 7.7 fL (7.4-10.4); MONOCYTES % (AUTO) 5 % (2-9); NEUTROPHILS # (AUTO) 11.42 x10^3/uL (1.8-6.8); NEUTROPHILS % (AUTO) 85 % (42-75); PLATELET COUNT 277 x10^3/uL (130-400); RED BLOOD COUNT 4.37 x10^6/uL (3.82-5.3); RED CELL DISTRIBUTION WIDTH 17.1 % (9.6-15.2)
[2017-09-30 10:52] LABS: INTERNATIONAL NORMALIZED RATIO 1.12 (0.93-1.1); PROTHROMBIN TIME 11.6 Seconds (9.6-11.5)
[2017-09-30 10:56] LABS: ALANINE AMINOTRANSFERASE 65 U/L (12-78); ALBUMIN 2.6 g/dL (3.4-5.0); ANION GAP 11 mmol/L (5-15); CALCIUM 8.5 mg/dL (8.5-10.1); CHLORIDE 96 mmol/L (98-107); CREATININE 0.77 mg/dL (0.55-1.02)
[2017-09-30 10:58] LABS: ALKALINE PHOSPHATASE 883 U/L (45-117); BILIRUBIN,INDIRECT 0.9 mg/dL (0.0-2.0); BILIRUBIN,TOTAL 4.9 mg/dL (0.2-1.0); TOTAL PROTEIN 7.4 g/dL (6.4-8.2)
[2017-09-30] MEDS ORDERED: PROPOFOL 10 MG/ML, 20ML ONE (11:53)
[2017-09-30] MEDS ORDERED: LIDOCAINE-MPF 2% ,5ML ONE (11:53)
[2017-09-30] MEDS ORDERED: DEXAMETHASONE 4 MG/ML, 1ML ONE ×2 (11:54)
[2017-09-30] MEDS ORDERED: CEFAZOLIN 1,000 MG ONE ×2 (11:58)
[2017-09-30] MEDS ORDERED: BUPIVACAINE/PF-EPI 0.5% 1:200K INFIL ONE (12:07)
[2017-09-30] MEDS ORDERED: MEPERIDINE/PF 25MG/0.5ML IVPush PRN (13:00)
[2017-09-30] MEDS ORDERED: ONDANSETRON 2MG/ML, 2ML IVPush PRN (13:00)
[2017-09-30] MEDS ORDERED: ACETAMINOPHEN 325 MG TABLET PO PRN (13:00)
[2017-09-30] MEDS ORDERED: morphine SULFATE 10 MG/ML, 1ML IV PRN (13:00)
[2017-09-30] MEDS ORDERED: OXYcodone 5 MG/5 ML ORAL.SOL UDC PO PRN (13:00)
[2017-09-30] MEDS ORDERED: FENTANYL PF 100 MCG/2ML IV PRN (13:00)
[2017-09-30] MEDS ORDERED: HYDROcodone/APAP 7.5-325MG/15ML UDC PO PRN (13:00)
[2017-09-30] MEDS ORDERED: OXYcodone IR 5MG TABLET ONE (14:08)
[2017-09-30] MEDS ORDERED: PROMETHAZINE 25MG TABLET ONE (14:11)
[2017-09-30] MEDS ORDERED: PROMETHAZINE 25MG TABLET PO ONE (14:30)
== END 2017-09-30 14:45 ==
LOC: OUT 09:37
PROVIDERS: ATTEND Surgery
DX: Z45.2 Encounter for adjustment and management of vascular access device (principal); C23 Malignant neoplasm of gallbladder; Z88.1 Allergy status to other antibiotic agents
CPT/HCPCS: 36415; 36561; 77001; 80053; 82247; 82248; 82962; 85025; 85610; 93005; C1788; J0690; J1100; J1644; J2704; J3490; J7120; Q0169